=== PATIENT | female | born 1965 | race Caucasian/White ===

== ENCOUNTER 2016-11-30 11:21 | Day surgery (SDC) | payer OTHER ==
[~2016-11-30] VITALS: Ht 166.4 cm; Wt 126.4 kg
[2016-11-30 12:29] VITALS: Ht 166.4 cm; Wt 126.4 kg
[2016-11-30] MEDS ORDERED: FER325 PO ×2 (12:32→12:41)
[2016-11-30] MEDS ORDERED: IBUP-1542 PO (12:32)
[2016-11-30] MEDS ORDERED: OMEP40CA6 PO (12:32)
[2016-11-30] MEDS ORDERED: HYD25 PO (12:32)
[2016-11-30] MEDS ORDERED: LISI40TA9 PO (12:32)
[2016-11-30] MEDS ORDERED: TRAZ50TA18 PO (12:32)
[2016-11-30 13:05] VITALS: BP 135/68; PULSE 77; RESP 19
[2016-11-30] MEDS ORDERED: PROPOFOL 60 ML ONE (13:53)
[2016-11-30] MEDS ORDERED: LIDOCAINE 2% (SDV) 5 ML INJ ONE (13:54)
[2016-11-30 14:59] VITALS: BP 112/64
[2016-11-30 15:05] VITALS: BP 127/87
[2016-11-30 15:10] VITALS: BP 119/84
[2016-11-30 15:15] VITALS: BP 117/70; RESP 18
--- NOTE | 2016-11-30 15:29 | GILP ---
DATE OF PROCEDURE: 11/30/2016 PROCEDURE: Colonoscopy with polyp ablation. SURGEON: Lidia Gibson MD BRIEF HISTORY AND INDICATIONS: The patient is being evaluated for colorectal cancer screening. PREMEDICATION: Monitored anesthesia care by anesthesiologist. INSTRUMENT USED: Olympus colonoscope. PREPARATION: Adequate. TECHNIQUE: After informed consent, with the patient/relatives understanding the procedure, its indic ations potential risks and complications, including but not limited to: allergic reaction, bleeding, perforation, infection, missed lesions and after all pertinent questions were answered to the patie nt's satisfaction, the patient/relatives signed the witnessed informed consent. Following this, premedication was administered slowly IV push by under careful cardiovascular and re spiratory monitoring with pulse oximetry, automatic blood pressure and cardiac monitor. Once the sedativ e effect was achieved, the patient was placed in the left lateral decubitus position, digital rectal examination was performed. The colonoscope was then introduced and advanced under visual control th roughout all segments of the colon including: the rectum, sigmoid, descending colon, splenic flexure , transverse colon, hepatic flexure, ascending colon and finally reaching the cecum which was clearl y identified by transillumination, finger indentation and the ileocecal valve. Careful examination o f the mucosa of the lower gastrointestinal tract both on insertion as well as withdrawal of the inst rument disclosed the following findings: Rectal Examination: No evidence of perirectal disease, no masses. Colonic Mucosa: The colonic mucosa is unremarkable throughout with the exception of a patch measuri ng approximately 1.5 to 2 cm of multinodular polyps ranging in size from 3 to 6 mm. Ablation was pe rformed with a jumbo biopsy forceps. However, given the size of the polyp, the ablation is incomple te. The instrument was withdrawn. On withdrawal of the instrument, no additional abnormalities are noted with the exception of moderate-sized internal hemorrhoids. The instrument was then withdrawn, the patient tolerated the procedure well and was transferred out of the Endoscopy Suite awake and in good condition to continue recovery under observation. IMPRESSION: 1. Patch of multinodular polyps measuring at least 1.5 cm in total, partially ablated. 2. Moderate-sized internal hemorrhoids. PLAN: The patient will follow up as an outpatient. Pathology will be reviewed. If the polyps are adenomatous, the options should be reviewed and the ideal and only way to completely resect this les ion would be surgical. Alternatively, repeat colonoscopy with further ablation may be considered, b ut the likelihood of this modality of treatment eradicating the lesion completely is extremely low. Dictated By: LIDIA GIBSON MS/DANIEL Conf#: [id number] DID#: [id number] CC: LIDIA GIBSON;*EndCC*
--- NOTE | 2016-11-30 15:35 | GILP ---
DATE OF PROCEDURE: 11/30/2016 PROCEDURE: Esophagogastroduodenoscopy with biopsies. SURGEON: Lidia Gibson MD BRIEF HISTORY AND INDICATIONS: The patient is being evaluated for dyspepsia and reflux symptoms. PREMEDICATION: Monitored anesthesia care by anesthesiologist. INSTRUMENT USED: Olympus panendoscope. TECHNIQUE: After informed consent, with the patient/relatives understanding the procedure, its indic ations, potential risks and complications, including but not limited to: allergic reaction, bleeding , perforation or infection, and after all pertinent questions were answered to the patients satisfac tion, the patient/relatives signed witnessed informed consent. Following this, premedication was ad ministered slowly IV push under careful cardiovascular and respiratory monitoring with pulse oximetr y, automatic blood pressure and monitoring specialist. Once the sedative effect was achieved the patient was place in the left lateral decubitus, the panendoscope was introduced and advanced under visual contr ol. Careful examination of the upper gastrointestinal tract, both on insertion as well as withdrawal of the instrument disclosed the following findings: ESOPHAGUS: The distal esophagus shows erythema, edema and irregularity of the EG junction. Biopsie s were obtained to rule out Ocasio's esophagus. STOMACH: Upon entrance to the stomach air was insufflated, the gastric brambila distended normally. T here is erythema and edema of the mucosa of the body and antrum of the stomach. Biopsies were obtai tom to rule out H. pylori infection. PYLORUS: The pylorus appears patent and within normal limits, with no evidence of gastric outlet ob struction. DUODENUM: The duodenal mucosa was carefully examined in the duodenal bulb as well as the second por tion of the duodenum and appears unremarkable with no evidence of duodenitis, ulcer or neoplasm. The instrument was then withdrawn, the patient tolerated the procedure well and was transfer out of the endoscopy suite awake, and in good condition to continue recovery under observation IMPRESSION: 1. Esophagitis, rule out Ocasio's esophagus, biopsies obtained. 2. Gastritis, rule out Helicobacter pylori infection, biopsies obtained. PLAN: The patient will be followed up as an outpatient and will continue on PPI therapy, and furthe r recommendations will depend on patient's clinical course as well as review of biopsies. Dictated By: LIDIA GIBSON MS/DANIEL Conf#: [id number] DID#: [id number]
== END 2016-11-30 16:23 | disposition home or self-care (01) ==
LOC: GIL 11:21
PROVIDERS: ATTEND Internal Medicine Gastroenterology
DX: Z12.11 Encounter for screening for malignant neoplasm of colon (principal); K21.0 Gastro-esophageal reflux disease with esophagitis; D12.0 Benign neoplasm of cecum; K64.8 Other hemorrhoids; K29.70 Gastritis, unspecified, without bleeding; I10 Essential (primary) hypertension; J44.9 Chronic obstructive pulmonary disease, unspecified; E66.01 Morbid (severe) obesity due to excess calories; Z68.42 Body mass index [BMI] 45.0-49.9, adult
CPT/HCPCS: 43239; 45380; 88305; 88312; 88313; Z7610

== ENCOUNTER 2018-08-15 12:30 | Day surgery (SDC) | END 2018-08-15 21:14 | disposition home or self-care (01) ==